=== PATIENT | female | born 1975 | race Asian ===

== ENCOUNTER 2017-09-26 09:18 | Emergency (ER) | payer OTHER ==
[~2017-09-26 09:18] MED LIST: ASPIR 8181 MG PO; CIPRO500 MG PO; LAC PO; NORCO1 TA2 PO
[2017-09-26 10:16] LABS: CARBON DIOXIDE 29.8 mmol/L (21-32); CHLORIDE SERUM 104 mmol/L (98-107); CREATININE SERUM 0.7 mg/dL (0.6-1.0); GFR1 > 60 mL/min; GLUCOSE SERUM 87 mg/dL (74-106); POTASSIUM SERUM 4.1 mmol/L (3.5-5.1); SODIUM SERUM 139 mmol/L (136-145)
[2017-09-26 11:37] VITALS: BP 104/63
== END 2017-09-26 11:37 | disposition home or self-care (01) ==
LOC: ED 09:18
PROVIDERS: Emergency Medicine
DX: J45.901 Unspecified asthma with (acute) exacerbation (principal); N39.0 Urinary tract infection, site not specified
CPT/HCPCS: J1885; J2765; J7613; J7644